=== PATIENT | female | born 1985 | race Caucasian/White ===

== ENCOUNTER 2019-04-16 18:14 | Outpatient (CLI) | payer MEDICAID ==
[~2019-04-16] VITALS: Ht 154.9 cm; Wt 97.2 kg
[~2019-04-16 18:14] MED LIST: FER325 PO; PREN-93 PO
[2019-04-16 18:29] VITALS: Ht 154.9 cm; Wt 97.2 kg
[2019-04-16 18:30] VITALS: BP 116/59; PULSE 75; RESP 18
== END 2019-04-16 20:18 | disposition home or self-care (01) ==
LOC: OBT 18:14 → L-D 18:16 → OBT 20:18
PROVIDERS: ATTEND Specialist
DX: O24.419 Gestational diabetes mellitus in pregnancy, unspecified control (principal); O36.8330 Maternal care for abnormalities of the fetal heart rate or rhythm, third trimester, not applicable or unspecified; Z3A.35 35 weeks gestation of pregnancy
CPT/HCPCS: 76818